=== PATIENT | male | born 1995 | race Caucasian/White ===

== ENCOUNTER 2023-02-13 06:06 | Day surgery (SDC) | payer BC, SELFPAY ==
[2023-02-13] VITALS (26 sets, daily range): BP systolic 105–181; BP diastolic 43–114; PULSE 82–118; RESP 16–20; TEMP 35.8–37.1; O2SAT 90–98; BMI 47.1
[2023-02-13] MEDS: LACTATED RINGERS 1000 ML 1,000 ML 100 ML IV ×3 (06:50→10:50)
[2023-02-13 07:04] LABS: PTH Intact* 244 pg/mL (15-65)
--- NOTE | 2023-02-13 07:20 | W.PM.H&PU ---
History & Physical Update History & Physical Update H&P Reviewed and patient assessed: No changes noted
[2023-02-13] MEDS: CEFAZOLIN 1 GM inj 3 GM IVP (07:55)
--- NOTE | 2023-02-13 09:47 | SUR.OPER ---
blood samples for PTH sent to lab at 0934 and 0929
[2023-02-13 10:24] LABS: PTH Intact* 18 pg/mL (15-65)
[2023-02-13 10:28] LABS: PTH Intact* 24 pg/mL (15-65)
[2023-02-13] MEDS: BUPIVACAINE 0.25% 30 ML INJECTION (10:32)
--- NOTE | 2023-02-13 10:32 | PM.GSPRC ---
Operative Note Pre-op diagnosis: 1. Primary hyperparathyroidism 2. Kidney stones Post-op diagnosis: Same Type of Procedure: Left inferior parathyroidectomy Indications: The patient is a 28-year-old male who has a history of kidney stones and was found to have hypercalcemia. In further workup revealed a markedly elevated PTH as well as a nuclear medicine scan showing a likely left inferior parathyroid adenoma. Please see Dr. Reyes's documentation for preoperative discussion and decision-making. Procedure Description: I arrived to the OR with the patient having been positioned and intubated. The patient was prepped and draped sterilely. A time-out was then performed. Dr. Reyes then created a incision 2 finger breaths above the sternal notch. She took dissection down into the subcutaneous fat and through the platysma. I then provided retraction so that she could create sub platysmal flaps inferiorly toward the sternal notch and superiorly towards the thyroid cartilage. Once this was done, the midline raphe was identified and Dr. Reyes in size as with cautery. She dissected the strap muscles away from the thyroid gland itself on the left. I provided retraction of the thyroid medially. Because the imaging localized the parathyroid to likely left inferior lobe, we turned our attention to the inferior lobe. Dr. Reyes dissected out inferior thyroid vessels and ligated these with suture. I doubly ligated these with clips before dividing them with a scissor. Once this was done I was able to reflect the thyroid medially. We then carefully explored the fatty tissue behind the thyroid. There did not appear to be any obvious parathyroid tissue here. As we dissected deeper posteriorly, there was a bulge noted in the inferior central neck near the trachea, in expected location for the inferior parathyroid. The recurrent laryngeal nerve was visible laying just on top of this, however. This was confirmed with the Nim probe. Before dissecting in this area, Dr. Reyes use cautery to divide the w fibers between the strap muscles and the thyroid more superiorly and also divided the middle thyroid vein, to allow us to better reflect the thyroid medially. I then provided retraction of the thyroid while we determined how to dissect out the mass while avoiding injury to the recurrent laryngeal nerve. It seemed as though the mass was lying medial to the nerve therefore, Dr. Reyes carefully open the wispy tissue overlying the mass, with great care to avoid any dissection near the nerve as well as to avoid placing traction on the nerve. Once the with the fatty fibers were incised, there was a structure which appeared consistent with a parathyroid adenoma visible. Dr. Reyes was able to grasp this and then very carefully with a combination of careful dissection with a right angle, I divided small wispy fibers with cautery and any small feeding vessels were clipped before dividing. The mass itself appeared to dive posterior to the trachea. I provided retraction while Dr. Reyes was able to completely dissect this free, dividing the feeding vessel at the base with a clip. Once this was done, the specimen was sent to pathology for frozen section. This returned positive for an enlarged parathyroid gland. The nerve was identified and did stimulate. Again great care was taken not to pull or stretch this nerve during the dissection. Blood was sent for PTH testing at 15 and 20 minutes after the tissue had been removed. It came back at 24 and 18 from a baseline of 240. At this point I turned the case back over to Dr. Reyes who examined for hemostasis and closed the neck incision. Findings: 1. Enlarged inferior parathyroid gland, confirmed with frozen section. 2. Intraoperative PTH measuring 24 and 18 at 15 in 20 minutes respectively from a preoperative value of 244. Anesthesia: GETA Surgeon: Diane Reyes MD Co-Surgeon: Shana Pan MD Estimated blood loss (mL): 5 Specimen: Other Additional Specimen Information: Left inferior parathyroid Condition: stable Disposition: PACU Date of procedure: 02/13/23
--- NOTE | 2023-02-13 10:55 | P.GSOP_ITS ---
Operative Note Pre-op diagnosis: 1. Primary hyperparathyroidism. 2. Left inferior parathyroid adenoma Post-op diagnosis: 1. Left inferior parathyroid adenoma. Type of Procedure: 1. Left neck exploration with left inferior parathyroidectomy. Indications: 28-year-old male was seen in clinic for evaluation of hypercalcemia. last March patient developed kidney stones and in May had a nephrostomy tube due to kidney stones. He had at least 3 other episodes of passing kidney stones that did not require surgery. Patient had slightly elevated calcium level starting in 2012. His calcium ranged from 10.1-11.2. His intact PTH in November of 2022 was found to be 348. The 24 hour urine calcium was done and his calcium was Normal. Patient's vitamin-D level in November of 2022 was 10.1, which is below normal level. Patient was taking vitamin-D and his vitamin-D has improved to normal. On clinical exam patient did not have any palpable masses in his neck. Patient was referred for nuclear medicine parathyroid scan. His scan showed increased activity in the left inferior parathyroid gland concerning for parathyroid adenoma. Given patient's long history of symptomatic hypercalcemia, neck exploration with possible left parathyroid adenoma excision was recommended. The procedure was discussed in detail. The risks associated procedure including infection, bleeding, and injury to recurrent laryngeal nerve, as well as recurrence of his symptoms were all discussed with the patient, And he agreed to proceed. Procedure Description: After discussing the risks and benefits of the procedure, the patient signed informed consent.? The operative site was marked and the patient was brought to the operating room and placed on the operating table in supine position.? A shoulder roll was placed between patient's shoulder blades. Care was taken to pad the patient's pressure points.?? The patient was then Intubated with Nim tube by anesthesia.?? The operative site was then prepped and draped in the usual sterile fashion.? A time-out was then performed. Skin incision was made over the skin crease 1 finger breadth above the sternal notch. Subcutaneous layer and platysma was divided with electrocautery. Skin flaps were developed inferiorly and superiorly. Midline fascia was divided and strap muscles were retracted laterally. Thyroid gland was identified and we turned our attention in the area of the left inferior pole. The left inferior thyroid vasculature was clamped and tied with Vicryl ties to expose the posterior left thyroid gland. The tissue posterior to the left thyroid gland was explored and no suspicious parathyroid tissue was noted. The left recurrent laryngeal nerve was identified and tissues posterior to that appeared prominent and protuberant. We then confirmed the location of the left Recurrent laryngeal nerve. with care not to injure the nerve the wispy avascular tissue just medial to the nerve and lateral to the nerve was divided to mobilize the tissue posterior to the nerve. An enlarged parathyroid gland was then identified. This was carefully teased out of the surrounding tissues with care taken to avoid injury to the recurrent laryngeal nerve. Vascular pedicle going into the left inferior parathyroid gland was clipped with vascular clips. Throughout surgery hemostasis was achieved with cautery, vicryl ties and surgical clips. the tissue excised was sent to pathology. Pathology returned back as Enlarged parathyroid gland. Blood draws were obtained 15 minutes and 20 minutes after excising enlarged parathyroid gland. Patient's preoperative intact PTH was 244. Patient's 15 minute PTH was at 24 and patient's 20 minute PTH was at 18. These values were sufficient with the 50% drop from pre- operative PTH. At this time we elected to start incisional closure. Surgical field was examined and hemostasis was achieved with cautery and Direct pressure. Strap muscles and fascia were closed with a running 3-0 vicryl suture. Platysma was re-approximated with a running 3-0 vicryl suture. Skin was closed with 4-0 monocryl subcuticular stitch. Steristrips, 4x4 gauze and Tegaderm were applied to the incision. At the end of the case the counts was correct and patient tolerated procedure well and was transferred to the PACU in stable condition. Findings: enlarged left inferior parathyroid gland was found just posterior to the left recurrent laryngeal nerve. Anesthesia: GETA Surgeon: Kateryna Reyes MD Co-Surgeon: Shana Pan MD Estimated blood loss (mL): 5 Additional Specimen Information: 1. Left inferior parathyroid gland. Condition: stable Disposition: PACU Date of procedure: 02/13/23
--- NOTE | 2023-02-13 11:12 | W.ANESCHARGE ---
Anesthesia Charges Start Date/Time Anesthesia Start Date: 02/13/23 Anesthesia Start Time: 07:40 Stop Date/Time Anesthesia Stop Date: 02/13/23 Anesthesia Stop Time: 11:00
--- NOTE | 2023-02-13 11:17 | W.ANESCHARGE ---
Anesthesia Charges Start Date/Time Anesthesia Start Date: 02/13/23 Anesthesia Start Time: 07:40 Stop Date/Time Anesthesia Stop Date: 02/13/23 Anesthesia Stop Time: 11:00
[2023-02-13] MEDS: HYDROCODONE-ACETAMIN 5-325 MG 1 TAB PO ×2 (16:05→20:52)
--- NOTE | 2023-02-14 02:52 | PC.NURSE ---
Shift Note: Pt cooperative, flat affect. HR tachy, as high as 118. Encouraged fluid intake, pt tolerating well. Voiding without difficulty. Moving independently. C/o 3/10 neck/throat discomfort, PRN [place] given as well as ice pack to the throat and popsicle/icecream. Brief complaint of generalized itching. 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 Linens changed and itching resolved.
[2023-02-14 04:50] VITALS: BP 127/80; PULSE 85; RESP 16; TEMP 36.4; O2SAT 97
[2023-02-14 06:49] LABS: Ionized Calcium* 1.06 mmol/L (1.11-1.30)
[2023-02-14 06:58] LABS: Calcium* 8.4 mg/dL (8.4-10.6)
[2023-02-14] MEDS: HYDROCODONE-ACETAMIN 5-325 MG 1 TAB PO ×2 (07:57→13:20)
[2023-02-14 08:20] VITALS: BP 124/75; PULSE 81; RESP 18; TEMP 36.4; O2SAT 96
[2023-02-14 12:15] VITALS: BP 121/81; PULSE 81; RESP 18; TEMP 36.3; O2SAT 97
[2023-02-14] MEDS: MAG HYDROX/ALUMINUM HYD/SIMETH 30 ML ORAL.SUSP PO (12:39)
--- NOTE | 2023-02-14 12:45 | PM.DS1 ---
DS: Providers Provider Date Seen: 02/14/23 Primary care physician: MILTON SOLER DO Attending Physician on discharge: Kateryna Reyes MD DS: Diagnosis Discharge Diagnosis (1) S/P parathyroidectomy: Status: Acute DS: Summary Hospital Course Hospital Course: Patient was admitted to the hospital after he underwent left neck exploration and left inferior parathyroidectomy. He did well overnight. His total calcium on postop day 1 was normal with slightly decreased ionized calcium. Patient was tolerating regular diet and was ambulating. Time Spent with Patient Time attestation: Total time spent providing and/or coordinating discharge services: Exam Narrative: Exam Narrative: Neck: Surgical incision is clean with no expanding hematoma. Minimally tender to palpation. Const: Vital Signs, click to edit/add: Vital Signs - 24 hr 02/13/23 13:00 02/13/23 13:15 02/13/23 13:30 Temperature 97.7 F Pulse Rate [Right Pulse Oximeter] 105 H 101 H 105 H Respiratory Rate 16 18 16 Blood Pressure [Le ft Arm] 109/56 L 105/57 L 115/72 Pulse Oximetry 92 93 93 Oxygen Delivery Me thod Room Air Room Air Room Air 02/13/23 14:00 02/13/23 15:00 02/13/23 15:00 Temperature 96.4 F L Pulse Rate [Right Pulse Oximeter] 103 H 117 H 117 H Respiratory Rate 16 18 16 Blood Pressure [Le ft Arm] 114/68 112/69 Pulse Oximetry 92 94 Oxygen Delivery Me thod Room Air Room Air 02/13/23 16:00 02/13/23 17:00 02/13/23 18:00 Temperature Pulse Rate [Right Pulse Oximeter] 116 H 118 H 115 H Respiratory Rate 18 18 18 Blood Pressure [Le ft Arm] 132/88 119/84 120/75 Pulse Oximetry 92 92 95 Oxygen Delivery Me thod Room Air Room Air Room Air 02/13/23 23:00 02/13/23 23:00 02/14/23 04:50 Temperature 97.7 F 97.6 F Pulse Rate [Right Pulse Oximeter] 104 H 94 85 Respiratory Rate 18 18 16 Blood Pressure [Le ft Arm] 127/79 127/80 Pulse Oximetry 92 97 Oxygen Delivery Me thod Room Air Room Air 02/14/23 08:20 02/14/23 12:15 Temperature 97.6 F 97.4 F L Pulse Rate [Right Pulse Oximeter] 81 81 Respiratory Rate 18 18 Blood Pressure [Le ft Arm] 124/75 121/81 Pulse Oximetry 96 97 Oxygen Delivery Me thod Room Air Room Air DS: Data Data Completed and Pending Labs on day of discharge: Labs from last 24 hours 02/14/23 05:51 Calcium 8.4 Ionized Calcium [place] 1.06 L Discharge Plan Discharge Disposition: Home, Self-Care Discharging Surgeon: Kateryna Reyes Follow-Up Appointment: 2 weeks [facility] Prescriptions: New hydrocodone-acetaminophen 5-325 mg tablet 1 tab PO Q6H PRN (Reason: pain) Qty: 15 0RF Activity Level: No strenuous activity Activity Detail: You can take the outer dressing off tomorrow and shower tomorrow. Avoid swimming for 2 weeks. Discharge Diet: Regular Patient Instructions: Surgical Site Infections (DC) Additional Instructions: You should take [id number] calcium with vitamin-D supplements and take those twice a day for the next 2 weeks. Forms: Work/School Release Follow-up: Kateryna Reyes MD [Staff Physician] - Discharge Orders: Discharge Order (Routine); Ordered 02/14/23 Ordered By: Kateryna Reyes
== END 2023-02-14 13:38 | disposition home or self-care (01) ==
LOC: OR 06:09 → MEDSURG 06:12
PROVIDERS: PCP Student in an Organized Health Care Education/Training Program; Visit Provider Surgery
PROC: (CPT 60500; principal; 2023-02-13 07:30)
DX: E21.0 Primary hyperparathyroidism (principal); D35.1 Benign neoplasm of parathyroid gland; N20.0 Calculus of kidney
CPT/HCPCS: 60500; 00320; 36415; 82310; 82330; 83970; 88305; A9270; J0330; J0665; J0690; J1100; J1200; J2250; J2371; J2405; J2704; J3010; J3490; J7120